=== PATIENT | male | born 1980 | race Caucasian/White ===

== ENCOUNTER 2019-02-13 02:50 | Inpatient (IN) | payer MEDICAID ==
[2019-02-13] VITALS (8 sets, daily range): BP systolic 89–99; BP diastolic 47–63; Ht 167.6 cm; Wt 59.9 kg
[~2019-02-13] VITALS: Ht 167.6 cm; Wt 59.9 kg
--- NOTE | 2019-02-13 03:09 | NUR ---
PT PRESENTS TO ER TODAY WITH C/O OF GENERALIZED WEAKNESS THAT STARTED APPROX 3 DAYS AGO. PER PT HE ALSO HAD LABS DRAWN ON 02/10 AND HE RECIEVED A CALL FROM HIS PCP STATING IS BLOOD COUNT WAS LOW AND HE NEEDED TO VISIT THE ER. PT ALSO REPORTING NAUSEA AND VOMITNG X3. PT DENIES ANY BLOOD IN HIS VOMIT OR STOOL. PT DENIES ANY PAIN AT THIS TIME. PT PLACED ON IT PROGRAMMER. PT IS A/O X4. RESP ARE EQUAL AND UNLABORED. NO ACUTE DISTRESS NOTED. FAMILY AT BEDSIDE.
[2019-02-13 03:31] LABS: PLATELET COUNT 291 x10^3mcL (130-400)
[2019-02-13 03:33] LABS: RED CELL DISTRIBUTION WIDTH 20.3 % (11.5-14.5)
[2019-02-13 03:53] LABS: CALCIUM 7.6 mg/dL (8.5-10.1); CARBON DIOXIDE 26.2 mmol/L (21-32); CHLORIDE SERUM 106 mmol/L (98-107); GFR1 > 60 mL/min; GLUCOSE SERUM 108 mg/dL (74-106); POTASSIUM SERUM 4.1 mmol/L (3.5-5.1); SODIUM SERUM 141 mmol/L (136-145)
[2019-02-13 03:58] LABS: ALBUMIN 2.6 g/dL (3.4-5.0); ALKALINE PHOSPHATASE 105 U/L (46-116); ALT/SGPT 20 U/L (16-63); AST/SGOT 34 U/L (15-37); BILIRUBIN TOTAL 0.43 mg/dL (0.20-1.00); TOTAL PROTEIN, SERUM 9.3 g/dL (6.4-8.2)
--- NOTE | 2019-02-13 04:57 | NUR ---
ACCORDING TO BLOOD BANK PT CAN NOT RECIEVE BLOOD DUE TO PT TESTING POSTIVE FOR ANTIBODIES IN HIS BLOOD. BLOOD BANK STATES THAT PTS BLOOD WILL BE SENT OUT FOR FURTHER TESTING.PER BLOOD BACK THIS TESTING WILL TAKE APPROX 1 DAY AND PT CANNOT RECIEVE BLOOD UNTIL THIS TEST IS COMPLETE. MD GRIGGS MADE AWARE.
[2019-02-13 05:03] LABS: BAND NEUTROPHIL 7 % (0-10); MONOCYTE 5 % (0-7); SEGMENTED NEUTROPHILS 68 % (37-75)
[2019-02-13 05:05] LABS: rbc morphology (normal/abnorm) ABNORMAL (NORMAL)
[2019-02-13 05:06] LABS: PLATELET MORPHOLOGY PLATELETS NORMAL
[2019-02-13 05:20] LABS: MAGNESIUM 2.2 mg/dL (1.8-2.4); PHOSPHOROUS 3.7 mg/dL (2.5-4.9)
[2019-02-13] MEDS ORDERED: BIKTARVY 50-201 EACH PO (05:22)
--- NOTE | 2019-02-13 07:16 | NUR ---
REPORT GIVEN TO MIGUEL DELGADO TO ASSUME CARE OF PT.
--- NOTE | 2019-02-13 07:59 | NUR ---
PATIENT ARRIVED FROM ED ACCOMPANIED BY MEAT CUTTING BLOCK REPAIRER. PATIENT AMBULATED TO BED WITHOUT ASSISTANCE AND TO THE RESTOOM WHERE HE VOIDED, PATIENT REPORTS NO DIZZINESS OR WEAKNESS WHEN AMBULATING. PATIENT IS A/0 X4, DENIES SHORTNESS OF BREATH ON ROOM AIR. PATIENT STATES HE HAD AN ABNORMAL LAB RESULT THE OTHER DAY AND WAS INSTRUCTED TO FOLLOW UP WITH HIS DR, BUT WOKE FROM SLEEP LAST NIGHT VOMITING AND CAME TO ED. PATIENT HGB/HCT IS 5.7/18. REPORT FROM ED NURSE GLEN STATED THAT BLOOD BANK REPORTED PATIENT HAS ANTIBODIES IN BLOOD AND BLOOD WILL NOT BE READY FOR A DAY. WILL VERIFY WITH BLOOD BANK AND INFORM PHYSICIAN. ORIENTED TO CALL LIGHT SYSTEM AND INSTRUCTED TO CALL WHEN ASSISTANCE IS NEEDED. WILL CONTINUE TO MONITOR
--- NOTE | 2019-02-13 08:54 | NUR ---
PATIENT WAS ADMITTED TO [facility], MONITOR 19 PLACED ON PATIENT READING NSR. ADMINISTERED NMEDICATION PER AUG. INFOMRED PATIENT WE ARE STILL WAITING TO HEAR BACK FROM BLOOD BANK ABOUT BLOOD AVAILABILITY. PER BLOOD BANK DUE TO ANTIBODIES IN PATIENT BLOOD, BLOOD MUST BE SENT OUT TO OUTSIDE FACILITY. WILL FOLLOW UP
--- NOTE | 2019-02-13 10:00 | NUR ---
PATIENT EDUCATED ABOUT OCCULT STOOL SAMPLE, HAT PROVIDED IN TOILET. PATIENT REQUESTING URINAL, STATING THAT RECENTLY HE HAS BEEN HAVING PROBLEMS HOLDING HIS URING WHEN HE FEELS THE URGE TO GO AND WHILE ABLE TO AMBULATE TOT RESTROOM WANTED A URINAL JUST IN CASE. PATIENT STATING DUE TO HIS SMOAKING HABITS OF 3-4 TIMES PER DAY HE WOULD LIKE A NICOTINE PATICH TO CURB CRAVINGS. WILL INFORM DRS AT ROUNDING INFORMED DR LUNA AUTOMOTIVE STARTER REPAIRER PHONE FOR DR ROSALES ABOUT DELAY IN BLOOD AVAILABILIITY FOR TRANSFUSION. DRS AWARE ALREADY. PATIENT DID NO RECEIVE MEDICATIONS FOR BLOOD TRANSUFSION DUE TO BLOOD NOT BEING AVAILABLE
--- NOTE | 2019-02-13 13:16 | NUR ---
CLARIFIED ORDER WITH DR ROSALES ABOUT BENADRYL AND PEPCID FOR HIVES, PATIENT STATING HE IS NOT ITCHING OR EXPERIENCING HIVES, PER DR STARK, PATIENT SHOWS SIGNS OF PREVIOUS ITCHING AND IS MEDICATING PROPHYLACTICALLY. CHANGED ORDER FOR NICOTINE PATCH FOR NOW SINCE PATIENT IS EXPERIENCING ANXIETY NEEDING TO SMOKE
--- NOTE | 2019-02-13 13:32 | NUR ---
ADMINISTERED MEDICATION PER AUG, NICOTINE PATCH PLACED TO LEFT UPPER ARM AND DATED. PATIENT HAD NO ADDITIONAL COMPLAINTS AT THIS TIME
--- NOTE | 2019-02-13 15:26 | NUR ---
BEGINING OF BLOOD TRANSFUSION. VITAL SIGNS STABLE, BLOOD VERIFIED BY SURU RN. PATIENT EDUCATED ABOUT ADERVE EFFECTS OF TRANSFUSION AND INSTRUCTED TO CALL IF NEEDING HELP. PATIENT MEDICATED WITH BENADRYL BEFORE BEGINING OF TRANSFUSION. RN WILL REMAIN IN ROOM WITH PATIENT FOR FIRST 15 MINUTES OF TRANSFUSION
--- NOTE | 2019-02-13 15:51 | NUR ---
AFTER 15 MINUTES OF PRBC TRANSFUSION PATIENT HAS NO COMPLAINTS AND SHOWS NO SIGNS OF TRANSFUSION REACTIONS. VITAL SIGNS STABLE. MOTHER IN ROOM WITH PATIENT. CALL LIGHT WITHIN REACH, WILL CONTINUE TO MONITOR
--- NOTE | 2019-02-13 18:11 | NUR ---
TRANSFUSION ENDED AT 1800, VITAL SIGNS STABLE, NO SIGNS OR SYMPTOMS OF ADVERSE REACTION. PATIENT HAS NO COMPLAINTS. LASIX ADMINSTERED PER ORDER. CALL LIGHT WIHTIN REACH, MOTHER AT BEDSIDE. WILL CONTINUE TO MONITOR
--- NOTE | 2019-02-13 19:18 | NUR ---
REPORT GIVEN TO HINA DELGADO, PATIENT RESTING COMFORTABLY AT THIS TIME, WITH NO COMPLAINTS. ENDROSED X2 BLOOD TRANSFUSIONS TO OUTREACH DIRECTOR.
--- NOTE | 2019-02-13 19:20 | NUR ---
RECIEVED PT IN NO ACUTE DISTRESS. AOX4. TELE #19, SR. BREATHING E/U. IV TO LAC, PATENT. DENIES PAIN. MOTHER AT BEDSIDE. BED IN LOWEST POSITION, 2 SIDE RAILS UP, CALL LIGHT IN REACH. INSTRUCTED TO CALL FOR ASSISTANCE.
--- NOTE | 2019-02-13 21:26 | NUR ---
PRBC UNIT 2 OF 3 STARTED AT 2050 AT 50 ML/HR. BLOOD PRODUCT WAS VERIFIED WITH ANJELICA DELGADO. PRE INFUSION VSS. 15 MIN VSS, RATE INCREASED TO 125 ML/HR AT THIS TIME. NO S/S OF ADVERSE REACTIONS.
[2019-02-14 00:05] VITALS: BP 92/57
[2019-02-14 00:50] VITALS: BP 90/55
--- NOTE | 2019-02-14 01:00 | NUR ---
PRBC UNIT 3 OF 3 STARTED AT 0030 AT 60 ML/HR. BLOOD PRODUCT WAS VERIFIED WITH ANJELICA DELGADO. PRE INFUSION VSS. 15 MIN VSS, RATE INCREASED TO 125 ML/HR AT THIS TIME. NO S/S OF ADVERSE REACTIONS.
[2019-02-14 03:20] VITALS: BP 95/64
--- NOTE | 2019-02-14 03:32 | NUR ---
PRBC UNIT 3 OF 3 COMPLETED AT 0320. VSS. PT EXPERIENCED NO ADVERSE REACTIONS. DR. NUNEZ AND DR. RAMOS NOTIFIED VIA [employer] FOR POSSIBLE POST TRANSFUSION H/H REDRAW.
[2019-02-14 04:25] LABS: microscopic required? YES; urine erythrocyte TRACE (NEGATIVE)
[2019-02-14 04:36] LABS: AMPHETAMINE QUAL UR NONE DETECTED (See below)
[2019-02-14 05:36] VITALS: BP 86/56
--- NOTE | 2019-02-14 06:39 | NUR ---
NO ACUTE CHANGES. NO ACUTE DISTRESS NOTED. WILL ENDORSE TO ONCOMING RN.
--- NOTE | 2019-02-14 07:11 | NUR ---
RECEIVED REPORT FROM HINA DELGADO. PATIENT RESTING COMFORTABLY IN BED. SALINE LOCK TO LAC IS PATENT AND INTACT. NO REDNESS OR PAIN. TELE # [address] PT ON ROOM AIR. NO C/O SOB AND NO DISTRESS NOTED. ALL QUESTIONS AND CONCERNS ADDRESSED.
[2019-02-14 08:34] LABS: CALCIUM 7.7 mg/dL (8.5-10.1); CARBON DIOXIDE 23.5 mmol/L (21-32); CHLORIDE SERUM 104 mmol/L (98-107); CREATININE SERUM 0.8 mg/dL (0.7-1.3); GFR1 > 60 mL/min; GLUCOSE SERUM 109 mg/dL (74-106); POTASSIUM SERUM 3.6 mmol/L (3.5-5.1); SODIUM SERUM 139 mmol/L (136-145)
[2019-02-14 08:38] LABS: BASOPHIL % 0.2 % (0-2)
[2019-02-14 08:44] LABS: PLATELET COUNT 450 x10^3mcL (130-400); RED CELL DISTRIBUTION WIDTH 17.5 % (11.5-14.5)
[2019-02-14 09:00] VITALS: BP 101/65
--- NOTE | 2019-02-14 09:29 | NUR ---
DR ELLIOTT PAGED TO SEE IF C.DIFF AND STOOL CULTURE ARE GOING TO BE ORDERED PER DR SEO SUGGESTION AND TO NOTIFY THAT PT HOME MED BIKTARVY CAN'T BE BROUGHT FROM HOME. AWAITING RESPONSE.
--- NOTE | 2019-02-14 09:45 | NUR ---
DR ELLIOTT CALLED BACK AND WILL ORDER C.DIFF AND CULTURE. PT POSSIBLY GOING HOME TODAY HOME MEDICATION NOT NEEDED.
[2019-02-14] MEDS ORDERED: FER300 PO (10:05)
[2019-02-14 12:03] VITALS: BP 101/65
--- NOTE | 2019-02-14 12:19 | NUR ---
PATIENT STABLE FOR DISCHARGE PER MD. DISCHARGE INSTRUCTIONS AND SUMMARY DISCUSSED WITH PATIENT. PT VERBALIZED UNDERSTANDING AND AGRESS TO FOLLOW UP APPOINTMENT WITH PCP. ID BANDS CUT. IV REMOVED AND IV POLE CLEARED. TELE MONITOR REMOVED AND MONITOR NOTIFIED. PATIENT ESCORTED TO LOBBY.
== END 2019-02-14 12:25 | disposition home or self-care (01) | DRG 663 ==
LOC: ED 02:50 → MU 04:53 → DU 04:53 → MU 07:33 → DU 08:47
PROVIDERS: Emergency Medicine; ADMIT General Practice
DX: D53.9 Nutritional anemia, unspecified (principal); E43 Unspecified severe protein-calorie malnutrition; I95.9 Hypotension, unspecified; E83.51 Hypocalcemia; Z68.21 Body mass index [BMI] 21.0-21.9, adult; Z87.891 Personal history of nicotine dependence
CPT/HCPCS: 87046; 87046-59; G0378; J2405; J7030; J7040; P9016; Q0163

== ENCOUNTER 2019-03-24 20:14 | Inpatient (IN) | payer MEDICAID ==
[~2019-03-24] VITALS: Ht 167.6 cm; Wt 51.0 kg
[~2019-03-24 20:14] MED LIST: BIKTARVY 50-201 EACH PO; FER300 PO
[2019-03-24 20:17] VITALS: Ht 167.6 cm; Wt 51.0 kg
--- NOTE | 2019-03-24 20:35 | NUR ---
PT PRESENTS TO THE ED WITH C/C OF ABNORMAL LAB RESULTS. REPORTS HE WAS FEELING "OUT OF ENERGY" AND HAPPENED TO HAVE A DR.'S APPT. PMD YG LABS AND TOLD THE PT HE HAD "LOW HEMOGLOBIN". PT STATES HE'S WEAK, FATIGUED, REPORTS HE WAS SEEN AT THE HOSPITAL FOR THE SAME THING THREE WEAKS AGO. PT APPEARS PALE AND WEAK. FULL ROM, AMBULATORY. PT IS AWAKE, AAOX4, RESP E/U, NAD NOTED. AWAITING MSE. MOTHER AT BEDSIDE.
--- NOTE | 2019-03-24 20:44 | NUR ---
PT AWARE OF NEED FOR URINE, LAB AT BEDSIDE.
--- NOTE | 2019-03-24 20:47 | NUR ---
PT AMBULATING WITH STEADY GAIT TO RESTROOM.
[2019-03-24 21:13] LABS: CALCIUM 7.9 mg/dL (8.5-10.1); CARBON DIOXIDE 23.4 mmol/L (21-32); CHLORIDE SERUM 101 mmol/L (98-107); CREATININE SERUM 1.2 mg/dL (0.7-1.3); GFR1 > 60 mL/min; GLUCOSE SERUM 112 mg/dL (74-106); POTASSIUM SERUM 3.9 mmol/L (3.5-5.1); SODIUM SERUM 132 mmol/L (136-145)
[2019-03-24 21:18] LABS: ALBUMIN 1.6 g/dL (3.4-5.0); ALKALINE PHOSPHATASE 921 U/L (46-116); ALT/SGPT 43 U/L (16-63); AST/SGOT 80 U/L (15-37); BILIRUBIN TOTAL 0.5 mg/dL (0.20-1.00); TOTAL PROTEIN, SERUM 7.4 g/dL (6.4-8.2)
[2019-03-24 21:25] LABS: PLATELET COUNT 109 x10^3mcL (130-400)
--- NOTE | 2019-03-24 21:42 | NUR ---
REMINDED PT OF NEED FOR URINE, PT STATED "I STILL CAN'T GO".
[2019-03-24 21:57] LABS: BAND NEUTROPHIL 0 % (0-10); SEGMENTED NEUTROPHILS 0 % (37-75)
[2019-03-24 21:58] LABS: rbc morphology (normal/abnorm) ABNORMAL (NORMAL)
--- NOTE | 2019-03-24 22:18 | NUR ---
DR AUSTIN AT BEDSIDE TO SPEAK WITH PT REGARDING PLAN OF CARE OF NEED FOR ADMISSION AND NEED FOR BLOOD TRANSFUSION. PT VERBALIZED UNDERSTANDING AND AGREED TO PLAN OF CARE. PT SIGNED CONSENT FOR BLOOD TRANSFUSION.
[2019-03-24] MEDS ORDERED: ZITHROMAX500 MG PO (22:23)
[2019-03-24] MEDS ORDERED: BACTRIM DS1 TAB PO (22:24)
--- NOTE | 2019-03-24 22:32 | NUR ---
IV BOLUS INITIATED PER ORDER, PT VERBALIZED UNDERSTANDING OF MEDICATION PRIOR TO ADMINISTRATION. PT IS AWAKE AND ALERT, RESP E/U, SPEAKING WITH RESIDENT MDS AT BEDSIDE.
--- NOTE | 2019-03-24 22:47 | NUR ---
MD MADE AWARE OF BP, 93/53, WANTS TO REASSESS POST BOLUS. PT IS AWAKE, ALERT, RESP E/U, SPEAKING IN FULL, CLEAR SENTENCES. NAD NOTED.
--- NOTE | 2019-03-24 23:04 | NUR ---
IV BOLUS COMPLETED, NEW BP 98/55, MAP (65). MD AWARE, NO FURTHER ORDERS ANTICIPATED AT THIS TIME.
--- NOTE | 2019-03-24 23:17 | NUR ---
REPORT CALLED TO SANDY FERRARO, REPORTS SHE WILL CALL BACK AFTER SHE VERIFIES WITH CHARGE.
--- NOTE | 2019-03-24 23:22 | NUR ---
REPORT CALLED TO LABORATORY MACHINIST SONIA TO ASSUME CARE FOR PT.
--- NOTE | 2019-03-24 23:29 | NUR ---
PT TRANSFERRED TO MED SURG FLOOR VIA WHEELCHAIR BY EMT NHAN. PT VERBALIZED UNDERSTANDING OF NEED TO CONTINUE CARE. PT IS AWAKE, ALERT, AAOX4, RESP E/U. PT'S MOTHER AT SIDE. NAD NOTED.
[2019-03-24 23:54] VITALS: BP 100/55
--- NOTE | 2019-03-25 00:09 | NUR ---
RECEIVED PT FROM ER, PT ADMIT FOR PANCYTOPENIA. PT IS A/O X4, VERBAL RESPONSIVE, LUNG SOUND CLEAR BILATERAL, NO COUGH, NO SOB, DENY ANY CHEST PAIN OR DISCOMFORT, BOWEL SOUND PRESENT ALL 4 QUADRANTS, NO DISTNETION, NO TNEDER. PEDAL PULSE PRESENT BOTH FEET, NO EDEMA, PT C/O GENERALIZED WEAKNESS, IV AT LEFT AC, AND RIGHT AC, THERE IS MULITPLE SMALL BLACK SPOTS AT SARIAH ARM AND FRONT BODY. ALL ADLS ASSIST, ALL NEED MET, CALL LIGHT IN REACH, WILL CONTINUE TO MONITOR.
[2019-03-25 00:56] LABS: microscopic required? NO
[2019-03-25 01:02] LABS: UA SPECIFIC GRAVITY <=1.005 (1.005-1.035); urine erythrocyte NEGATIVE (NEGATIVE)
[2019-03-25 01:13] LABS: AMPHETAMINE QUAL UR NONE DETECTED (See below)
--- NOTE | 2019-03-25 01:41 | NUR ---
ONE UNIT OF PRBC ORDERED FOR PT FROM ER. UNIT OF PRBC OBTAINED AND STARTED. PT. TOLERATING WELL THUS FAR. NO ADVERSE REACTIONS NOTED THUS FAR. V.S. PRE TRANSFUSIION, BP 103/55, HR89, RESP. 16, O2 SAT. 995, 97.9 TEMPT. 15 MINUTES AFTER TRANSFUSION, 97.6, HR84,RESP. 16, 99%, RESP. 16. PT.'S MOTHER REMAINS AT BEDSIDE. CALL LIGHT WITHIN REACH. WILL CONTINUE TO MONITOR.
[2019-03-25 05:50] VITALS: BP 97/63
[2019-03-25 07:14] LABS: CALCIUM 7.3 mg/dL (8.5-10.1); CARBON DIOXIDE 23.8 mmol/L (21-32); CHLORIDE SERUM 108 mmol/L (98-107); CREATININE SERUM 0.9 mg/dL (0.7-1.3); GFR1 > 60 mL/min; GLUCOSE SERUM 85 mg/dL (74-106); MAGNESIUM 1.7 mg/dL (1.8-2.4); PHOSPHOROUS 4.2 mg/dL (2.5-4.9); POTASSIUM SERUM 3.8 mmol/L (3.5-5.1); SODIUM SERUM 139 mmol/L (136-145)
[2019-03-25 07:28] VITALS: BP 98/66
--- NOTE | 2019-03-25 07:36 | NUR ---
RECEIVED IN NO RESP. DISTRESS. AWAKE, ALERT AND ORENTED. VS WNL. IVF INFUSING WELL AND SITE CLEAR. NO C/O PAIN OR DISCOMFORT AT THIS TIME. CALL LIGHT WITHIN REACH. WILL CONTINUE WITH PLAN OF CARE.
[2019-03-25 07:41] LABS: PLATELET COUNT 83 x10^3mcL (130-400); RED CELL DISTRIBUTION WIDTH 18.6 % (11.5-14.5)
[2019-03-25 10:08] LABS: IRON 19 ug/dL (65-170); TOTAL IRON BINDING CAPACITY 154 ug/dL (250-450)
--- NOTE | 2019-03-25 12:38 | NUR ---
RESTING IN BED. NO DISTRESS NOTED. NO C/O PAIN.
[2019-03-25 12:57] LABS: ATYPICAL LYMPH 0 %; BAND NEUTROPHIL 0 % (0-10); BASOPHIL 4 % (0-2); MONOCYTE 30 % (0-7); SEGMENTED NEUTROPHILS 14 % (37-75)
[2019-03-25 12:59] LABS: PLATELET MORPHOLOGY PLATELETS DECREASED
[2019-03-25 13:01] LABS: rbc morphology (normal/abnorm) ABNORMAL (NORMAL)
--- NOTE | 2019-03-25 14:50 | NUR ---
Nutrition education: Patient was provided with [facility] handout on 'HIV/AIDS Nutrition Therapy'. Concepts like small frequent meals and nutrient dense foods were discussed. Patient verbalized understanding and did not have any questions at this time.
[2019-03-25 16:42] VITALS: BP 123/79
--- NOTE | 2019-03-25 16:50 | NUR ---
UNABLE TO START BLOOD TRANSFUSION, PT HAS TEMP. 102.0. COOLING MEASURES INITIATED, TYLENOL GIVEN. WILL RECHECK TEMP LATER.
--- NOTE | 2019-03-25 17:21 | NUR ---
TEMP STILL 101.3, COOLING MEASURES MAINTAINED. STILL UNABLE TO START TRANSFUSION.
--- NOTE | 2019-03-25 17:24 | NUR ---
DR. JEAN AWARE OF ELEVETED TEMP.
--- NOTE | 2019-03-25 18:41 | NUR ---
TEMP NOW 101.8, COOLING MEASURES IN PLACE. DR. JEAN PAGED. PT IN NO DISTRESS, DENIES ANY DISCOMFORT. FAMILY AT BEDSIDE. WILL BE ENDORSED TO INCOMING SHIFT.
[2019-03-25 19:40] VITALS: BP 103/56
--- NOTE | 2019-03-25 20:14 | NUR ---
PATIENT RECEIVED AWAKE, ALERT, ORIENTED X4 IN BED. RESPIRATION EVEN AND UNLABORED, ON ROOM AIR. ONGOING 0.9% NS AT 120 CC/HR INFUSING WELL AT THE LT ANTECUBITAL AREA. POOR APPETITE. LBM 03/25/19. VOIDING FREELY, INCONTINENT AT TIMES. GENERALIZED WEAKNESS TO EXTREMITIES. SCATTERED DISCOLORED SPOTS ALL OVER THE BODY. DENIES PAIN AT THIS TIME. WILL CONITNUE TO MONITOR.
--- NOTE | 2019-03-25 22:43 | NUR ---
STARTED 1 UNIT OF PRBC ORDERED. PRE MEDICATED WITH TYLENOL 650 MG PO AND BENADRYL 25 MG PO ORDERED. PRE TRANSFUSION VITAL SIGNS FOLLOWS TEMP 97.3, BP 94/53, HR 98, RR 20, O2 SAT 99%. WILL CONTINUE TO MONITOR.
--- NOTE | 2019-03-26 02:35 | NUR ---
PATIENT COMPLETED 1 UNIT OF PRBC. POST TRANSFUSION VITAL SIGNS FOLLOWS TEMP 97.3, HR 86, BP 94/52, RR 20, O2 SAT 99%. NO TRANSFUSION REACTION NOTED. WILL CONTINUE TO MONITOR.
[2019-03-26 04:51] VITALS: BP 97/63
--- NOTE | 2019-03-26 06:02 | NUR ---
PATIENT RESTING IN BED. RESPIRATION EVEN AND UNLABORED, ON ROOM AIR. DENIES DISCOMFORT/PAIN. SALINE LOCK TO RT ANTECUBITAL AND LT ANTECUBITAL AREA PATENT AND INTACT. ON NEUTROPENIC PRECAUTION. ASSISTED WITH NEEDS. SAFETY OBSERVED. PLACED BED IN THE LOWEST POSITION. PLACED CALL LIGHT WITHIN REACH AT ALL TIMES.
--- NOTE | 2019-03-26 06:48 | NUR ---
LAB [facility] CALLED, GAVE RESULT OF ANC 0.[address] A[address] SAMANIEGO.
--- NOTE | 2019-03-26 07:30 | NUR ---
PT ENDORSE TO ME THIS MORNING, LAYING IN BED RESTING, AA/O X4, BREATHING EVEN AND UNLABORED ON RA, NO ACUTE RESP DISTRESS OR SOB NOTED. MEDSURG DENIES ANY CP OR PRESSURE. REMAINS ON ISOLATION, NEUTROPENIC. BOWEL SOUNDS ACTIVE IN ALL FOUR QUADS. LAST BM 03/25/ POOR APPETITE NOTED PER PT. GEN WEAKNESS/AMB / KNOWS TO CALL FOR ASSIST. IV TO THE THE LAC INTACT AND PATENT. CALL LIGHT IN REACH. BED IN LOW POSITION, WILL CONTINUE TO MONITOR.
[2019-03-26 09:01] LABS: PLATELET COUNT 82 x10^3mcL (130-400); RED CELL DISTRIBUTION WIDTH 18.9 % (11.5-14.5)
[2019-03-26 09:08] VITALS: BP 112/70
--- NOTE | 2019-03-26 09:18 | NUR ---
LAB CALLED WBC 1.0 DR MADE AWARE. WILL CONTINUE TO MONITOR.
[2019-03-26 09:25] LABS: CALCIUM 7.6 mg/dL (8.5-10.1); CARBON DIOXIDE 23.6 mmol/L (21-32); CHLORIDE SERUM 105 mmol/L (98-107); CREATININE SERUM 0.8 mg/dL (0.7-1.3); GFR1 > 60 mL/min; GLUCOSE SERUM 82 mg/dL (74-106); POTASSIUM SERUM 4.7 mmol/L (3.5-5.1); SODIUM SERUM 136 mmol/L (136-145)
[2019-03-26 12:34] LABS: SEGMENTED NEUTROPHILS 9 % (37-75)
[2019-03-26 12:35] LABS: ATYPICAL LYMPH 3 %; BAND NEUTROPHIL 1 % (0-10); MONOCYTE 30 % (0-7); rbc morphology (normal/abnorm) ABNORMAL (NORMAL)
[2019-03-26 12:36] LABS: PLATELET MORPHOLOGY LARGE PLATELET SEEN
--- NOTE | 2019-03-26 14:09 | NUR ---
MADELEINE PALOMINO WALKED PT DOWN TO FRONT OF HOSPITAL. PT BREATHING EVEN AND UNLABORED ON RA, NO ACUTE RESP DISTRESS OR SOB NOTED/ DENIES ANY ABD PAIN OR DISCOMFORT. PHONE NUMBERS/ AND ADDRESSES GIVEN FOR DR. DINH AND PHYLLIS. PT IS CLEAR ON ALL D/C INSTRUCTIONS. DISCHARED.
--- NOTE | 2019-03-26 15:30 | NUR ---
PT LAYING IN BED RESTING WITH EYES CLOSE, EASILY AROUSABLE. PE PT TOLERATED 30 % OF LUNCH DENIES ANY PAIN OR DISCOMFORT. WILL CONTINUE TO MONITOR.
[2019-03-26 15:50] VITALS: BP 111/71
--- NOTE | 2019-03-26 16:21 | NUR ---
TEMP 101, MEDICATED PER EMAR WITH TYLENOL 650 MG, COOLING MEASURES APPLIED. WILL RETAKE IN ONE HR. PT DENIES ANY DISCOMFORT.
--- NOTE | 2019-03-26 17:22 | NUR ---
RECHECK PT TEMP IS NOW 99.1 COOLING MEASURES STILL APPLIED (AIR AND ICE PACKS APPLIED). WILL CONTINUE TO MONITOR.
--- NOTE | 2019-03-26 18:55 | NUR ---
NO ACUTE CHANGES AT THIS TIME, NO ACUTE RESP DISTRESS OR SOB NOTED. DENIES ANY CP OR PRESSURE OR DISCOMFORT. LAST TEMP WAS 99.1/COOLING MEASURES STILL APPLIED/ MOTHER AT BEDSIDE. IV TO THE LAC INTACT AND PATENT/ INFUSING AT 120ML/HR, NO REDNESS OR SWELLING NOTED. WILL ENDORSE TO INCOMING RN.
--- NOTE | 2019-03-26 19:10 | NUR ---
CARE ASSUMED FROM OUTGOING RN. PT RESTING COMFORTABLY IN BED. FAMILY AT BEDSIDE. NO ACUTE DISTRESS NOTED. EVEN AND UNLABORED RESPIRATIONS ON RA. MEDSURG PT. NEUTROPENIC PRECAUTION IN PLACE. IV PATENT AND INTACT RUNNING FLUIDS PER EMAR. NO C/O OF PAIN AT THIS TIME. BED IN LOWEST POSITION. SIDE RAILS UPX2. CALL LIGHT WITHIN REACH. WILL CONTINUE TO MONITOR.
[2019-03-26 19:15] VITALS: BP 100/61
--- NOTE | 2019-03-27 00:39 | NUR ---
PT ASLEEP COMFORTABLY IN BED. FAMILY AT BEDSIDE. NO ACUTE DISTRESS NOTED. EVEN AND UNLABORED RESPIRATION ON RA. IV PATENT AND INTACT RUNNING FLUIDS PER EMAR. NEUTROPENIC PRECAUTION IN PLACE. BED IN LOWEST POSITION. SIDE RAILS UPX2. CALL LIGHT WITHIN REACH. WILL CONTINUE TO MONITOR.
[2019-03-27 04:21] VITALS: BP 108/56
--- NOTE | 2019-03-27 06:24 | NUR ---
PT SLEPT COMFORTABLY IN INTERVALS THROUGHOUT THE SHIFT. ALL NEEDS TENDED TO AND MET. ALL SCHEDULED MEDICATIONS GIVEN, PO ANTIBIOTICS DC'ED PER DR. SEO, STARTED ON IV MERREM Q8HRS. IV PATENT AND INTACT RUNNING FLUIDS PER EMAR. NO C/O OF PAIN THROUGHOUT THE SHIFT. AFEBRILE THROUGHOUT THE SHIFT. NEUTROPENIC PRECAUTION IN PLACE. BED IN LOWEST POSITION. SIDE RAILS UPX2. CALL LIGHT WITHIN REACH. WILL ENDORSE TO ONCOMING SHIFT.
[2019-03-27 06:52] LABS: PLATELET COUNT 75 x10^3mcL (130-400); RED CELL DISTRIBUTION WIDTH 18.9 % (11.5-14.5)
[2019-03-27 06:53] LABS: CALCIUM 7.3 mg/dL (8.5-10.1); CARBON DIOXIDE 23.3 mmol/L (21-32); CHLORIDE SERUM 102 mmol/L (98-107); CREATININE SERUM 1.1 mg/dL (0.7-1.3); GFR1 > 60 mL/min; GLUCOSE SERUM 95 mg/dL (74-106); POTASSIUM SERUM 4.3 mmol/L (3.5-5.1); SODIUM SERUM 132 mmol/L (136-145)
--- NOTE | 2019-03-27 06:58 | NUR ---
LAB CALLED WITH CRITICAL RESULTS: WBC 1.6, H/H 7.7/. RESULTS PAGED TO . WILL ENDORSE TO ONCOMING SHIFT.
--- NOTE | 2019-03-27 07:30 | NUR ---
PT ENDORSE TO ME THIS MORNING, LAYING IN BED RESTING, AA/O X4, BREATHING EVEN AND UNLABORED ON RA, NO ACUTE RESP DISTRESS OR SOB NOTED. MEDSURG, DENIES ANY CP OR PRESSURE AT THIS TIME. REMAINS ON NENTROPETIC ISOLATION. BOWEL SOUNDS ACTIVE IN ALL FOUR QUADS, LAST BM 03/26. AMB / VOIDS FREELY/ URINAL AT BEDSIDE. IV TO THE LAC INTACT AND PATENT. CALL LIGHT IN REACH. WILL CONTINUE TO MONITOR.
[2019-03-27 08:00] VITALS: BP 108/62; BP 110/60
[2019-03-27 11:44] VITALS: BP 101/64
[2019-03-27 12:46] LABS: ATYPICAL LYMPH 3 %; BAND NEUTROPHIL 1 % (0-10); BASOPHIL 1 % (0-2); MONOCYTE 20 % (0-7); SEGMENTED NEUTROPHILS 3 % (37-75)
[2019-03-27 12:47] LABS: rbc morphology (normal/abnorm) ABNORMAL (NORMAL)
[2019-03-27 12:48] LABS: PLATELET MORPHOLOGY LARGE PLATELET SEEN
--- NOTE | 2019-03-27 15:06 | NUR ---
Initial Nutrition Assessment Dx: Pancytopenia PMHx: HIV PSHx: None Labs: (03/27) Na 132L, AST 80H, WBC 1.6L, H/H 7.7L/23L Meds: Colace, Ferrous sulfate, Merrem, Retro-Viral med (home medication Biktarvy tab), NSIV Diet: Regular PO intake since admission: Highly variable, 20-100% x 3 days Ht: 66" Wt: 112# (50.8 kg) BMI:18.1 (Underweight) Bed scale: 110# today during visit IBW: 142# % IBW: 79% UBW: 120-130# Age: 38 y/o male Food Allergies: NKFA Skin: Scattered blackened spots throughout body, Gallito: 21 Edema: None GI: Last BM: x 1 today per pt; hard stools NFPE: Malnutrition parameters-Pt. noted with mild indentation of the B/L temporal region and loss of subcutaneous fat/muscle in the B/L brachial regions. Pt. admitted with generalized weakness associated with severe anemia, mild fever, and chills per H and P documentations. RD Note: Consult received for HIV pt. with malnourishment. Pt. endorses poor to fair appetite and fair tolerance to diet order. C/o constipation today r/t iron pills. Encouraged pt. to have adequate fluid and fiber intake for BM management. Discussed ONS pt takes at home (Ensure), and requesting for one with more kcal and protein. Willing to try Vanilla or [place] Ensure Enlive for increased nutrient needs. Endorses significant weight loss in the past 4 weeks; pt. states "I was eating a lot at home, but I keep losing weight without trying. I think I lost about -9 lbs." States he has been gradually losing weight x 1 year, but unable to specify how much during this time period. Problem with: N/V/D/C: +constipation Problems with: Chewing: N Swallowing: N Current appetite: Poor to fair today Recent wt change: -9# x 4 weeks %wt change: 7.5% 1 month; significant Vitamin/Supplement use: None Special diet at home: Regular Physical activity: Some walking 3-4 times weekly Nutrition education given (specify specific nutrition education and handout given): Emphasized the importance of small frequent meals high in kcal and protein to prevent further weight loss. Advised pt. to take MVI at home as well. Encouraged pt. to ask questions regarding diet and provide food preferences; FNS will provide as able. No NCM handouts provided during this visit. Estimated Nutritional Needs Based on current body weight (50.8 kg) Energy: 8188-4726 kcal/day (35-40 kcal/kg for increased factors for HIV) Protein: 76-102 g/day (1.5-2.0 g/kg for preservation of LBM) Fluid: 6231-5587 mL/day (1 mL/kcal) Nutrition Diagnosis: 1. Underweight r/t acute medical condition AEB pt. noted with extensive history of weight loss x 1 year, significant 7.5% loss x 1 month, measured BMI 18.1 kg/m2. 2. Inadequate PO intake r/t poor appetite 2/2 acute medical condition AEB PO intake meeting <75% estimated kcal and protein needs. 3. Increased nutrient needs r/t acute and chronic medical condition, increased metabolic demands AEB pt. with history HIV and noted w/mild indentation of the B/L temporal region and loss of subcutaneous fat/muscle in the B/L brachial regions. Intervention 1. Continue regular diet as ordered and as tolerated 2. Add Ensure Enlive TID w/meals for increased nutrient needs to add 1080 kcal and 60 g protein. Monitor/Evaluate Goal: PO intake at least 75% of estimated needs Monitor: PO intake, Labs, GI function, skin F/U in 3-5 days as moderate risk (03/30-04/01)
--- NOTE | 2019-03-27 15:16 | NUR ---
Intervention 1. Continue regular diet as ordered and as tolerated 2. Add Ensure Enlive TID w/meals for increased nutrient needs to add 1080 kcal and 60 g protein. 3. Consider adding MVI QD for supplementation/increased nutrient needs
[2019-03-27 15:53] VITALS: BP 99/60
--- NOTE | 2019-03-27 18:38 | NUR ---
NO ACUTE CHANGES AT THIS TIME. NO ACUTE RESP DISTRESS OR SOB NOTED. PER DR. LUNA NS AT 120 D/C/ ORDERS FOLLOWED THROUGH. IV TO THE LAC INTACT AND PATENT/ HEPLOCKED. MOTHER AT BEDSIDE. WILL ENDORSE TO INCOMING RN.
[2019-03-27 18:57] VITALS: BP 99/56
[2019-03-27 19:17] VITALS: BP 102/60
--- NOTE | 2019-03-27 19:20 | NUR ---
CARE ASSUMED FROM OUTGOING RN. PT RESTING COMFORTABLY IN BED. FAMILY AT BEDSIDE. NO ACUTE DISTRESS NOTED. EVEN AND UNLABORED RESPIRATIONS ON RA. MEDSURG PT. IVL INTACT. NO C/O PAIN AT THIS TIME. NEUTROPENIC PRECAUTION IN PLACE. BED IN LOWEST POSITION. SIDE RAILS UPX2. CALL LIGHT WITHIN REACH. WILL CONTINUE TO MONITOR.
--- NOTE | 2019-03-27 23:59 | NUR ---
PT ASLEEP COMFORTABLY IN BED. FAMILY AT BEDSIDE. NO ACUTE DISTRESS NOTED. EVEN AND UNLABORED RESPIRATIONS ON RA. NEUTROPENIC PRECAUTION IN PLACE. BED IN LOWEST POSITION. SIDE RAILS UPX2. CALL LIGHT WITHIN REACH. WILL CONTINUE TO MONITOR.
[2019-03-28 04:58] VITALS: BP 108/63
--- NOTE | 2019-03-28 06:36 | NUR ---
PT SLEPT COMFORTABLY IN INTERVALS THROUGHOUT THE SHIFT. ALL NEEDS TENDED TO AND MET. ALL SCHEDULED MEDICATIONS GIVEN. NEUTROPENIC PRECAUTION IN PLACE. BED IN LOWEST POSITION. SIDE RAILS UPX2. CALL LIGHT WITHIN REACH. WILL ENDORSE TO ONCOMING SHIFT.
[2019-03-28 07:39] LABS: CALCIUM 7.2 mg/dL (8.5-10.1); CHLORIDE SERUM 103 mmol/L (98-107); CREATININE SERUM 0.7 mg/dL (0.7-1.3); GFR1 > 60 mL/min; GLUCOSE SERUM 98 mg/dL (74-106); MAGNESIUM 1.8 mg/dL (1.8-2.4); PHOSPHOROUS 2.5 mg/dL (2.5-4.9); POTASSIUM SERUM 3.8 mmol/L (3.5-5.1); SODIUM SERUM 133 mmol/L (136-145)
[2019-03-28 07:46] LABS: PLATELET COUNT 69 x10^3mcL (130-400); RED CELL DISTRIBUTION WIDTH 19.6 % (11.5-14.5)
--- NOTE | 2019-03-28 08:19 | NUR ---
AAO TIMES 4. ISOLATION FOR NEUTROPENIC PRECAUTIONS. LUNGS CTA. NO SOB. O2 SAT ON RA 97%. BS'S ACTIVE TIMES 4. REYES WITH SLIGHT GENERALIZED WEAKNESS. IV TO LAC PATENT, CDI. RAC IV SITE, THE ANGIO WAS HALF PULLED OUT AND BENT, I REMOVED THIS SALINE LOCK ANGIO INTACT. PERIPHERAL PULSES PALPABLE. NO EDEMA. BLACK COLORED SMALL SPOTS, METAL PLATER, NO DRAINAGE, SKIN INTACT. COOPERATIVE.
[2019-03-28 08:40] VITALS: BP 91/59
--- NOTE | 2019-03-28 11:09 | NUR ---
DR HILLIARD VERBALLY TOLD DURING PATIENT ROUNDS OF PATIENT'S WBC OF 1.2, H&H OF 7.4/22, AND PLATELETS OF 69.
[2019-03-28 11:58] LABS: ATYPICAL LYMPH 2 %; BAND NEUTROPHIL 2 % (0-10); BASOPHIL 0 % (0-2)
[2019-03-28 11:59] LABS: MONOCYTE 31 % (0-7)
[2019-03-28 12:00] LABS: SEGMENTED NEUTROPHILS 6 % (37-75)
[2019-03-28 12:01] LABS: rbc morphology (normal/abnorm) ABNORMAL (NORMAL)
[2019-03-28 16:34] VITALS: BP 134/71
--- NOTE | 2019-03-28 17:00 | NUR ---
Yari Cintron for 03/25/19 at [facility]17 [facility] and list to [facility] given to patient by Wing Stoll.
--- NOTE | 2019-03-28 17:35 | NUR ---
AAO TIMES 4. NO C/O PAIN. NO SOB. REVERSE ISOLATION. NO SOB. COOPERATIVE AND PLEASANT. IV PATENT, SITE CDI.
--- NOTE | 2019-03-28 20:00 | NUR ---
RECEIVED PT IN BED AWAKE, ALERT, ORIENTED X4. SPEECH CLEAR. MOTHER AT BEDSIDE. DESTIN GSOUNDS CLEAR, BREATHING EASILY ON ROOM AIR. NO TELE MONITOR NOTED, MEDSURG PT. BS ACTIVE IN ALL FOUR QUADS. NO ABD PAIN NOTED. URINAL AT BEDSIDE. GENERALIZED WEAKNESS NOTED. SCATTERED BLACK SPOTS THROUGH OUT BODY. NS AT 70ML/HR TO LAC. SHIFT ASSESSMENT COMPLETED. CALL LIGHT WITHIN REACH. BED IS IN LOWEST POSITION. WILL CONTINUE TO MONITOR CLOSELY.
[2019-03-28 20:55] VITALS: BP 106/61
--- NOTE | 2019-03-28 22:00 | NUR ---
ANGELIA HUNG AT THIS TIME. PT SLEEPING BUT EASILY AROUSABLE. MOTHER AT BEDSIDE. CALL LIGHT WITHIN REACH. BED IS IN LOWEST POSITION. WILL CONTINUE TO MONITOR CLOSELY.
--- NOTE | 2019-03-28 23:05 | NUR ---
TEMP 101.0, TYLENOL GIVEN AT THIS TIME. PT STATES HE FEELS NORMAL, NO CHILLS NOTED. COOLING MEASURES ENFORCED.
--- NOTE | 2019-03-29 02:54 | NUR ---
PT APPEARS TO BE SLEEPING IN NO DISTRESS. IVF ONGOING. CALL LIGHT WITHIN REACH. WILL CONTINUE TO MONITOR CLOSELY.
[2019-03-29 05:24] VITALS: BP 97/54
--- NOTE | 2019-03-29 06:25 | NUR ---
PT SLEPT ON AND OFF THROUGH OUT THE NIGHT. NO DISTRESS NOTED. DENIES PAIN OR DISCOMFORT. IVF ONGOING. MERREM INFUSING WELL AT THIS TIME. NEUTROPENIC PRECAUTIONS ENFORCED THROUGH OUT SHIFT. CALL LIGHT WITHIN REACH. MOTHER REMAINS AT BEDSIDE. ALL NEEDS TENDED TO. WILL ENDORSE TO INCOMING SHIFT.
[2019-03-29 07:31] LABS: CALCIUM 7.4 mg/dL (8.5-10.1); CARBON DIOXIDE 24.8 mmol/L (21-32); CHLORIDE SERUM 108 mmol/L (98-107); CREATININE SERUM 0.8 mg/dL (0.7-1.3); GFR1 > 60 mL/min; GLUCOSE SERUM 94 mg/dL (74-106); PHOSPHOROUS 3.4 mg/dL (2.5-4.9); POTASSIUM SERUM 3.8 mmol/L (3.5-5.1); SODIUM SERUM 139 mmol/L (136-145)
[2019-03-29 07:47] LABS: PLATELET COUNT 50 x10^3mcL (130-400); RED CELL DISTRIBUTION WIDTH 19.3 % (11.5-14.5)
[2019-03-29 08:25] VITALS: BP 102/73
--- NOTE | 2019-03-29 09:02 | NUR ---
AAO TIMES 4. NO TELE. LUNGS CTA. NO SOB. O2 SAT ON RA 95%. BS'S ACTIVE TIMES 4. REYES WITH SLIGHT GENERALIZED WEAKNESS. IV SITE LAC PATENT, CDI. COOPERATIVE AND PLEASANT. DENIES DISCOMFORT. MOTHER AT BEDSIDE, SUPPORTIVE AND CARING. REVERSE ISOLATION PRECAUTIONS. WBC 1.3.
[2019-03-29 09:29] LABS: ATYPICAL LYMPH 6 %; BAND NEUTROPHIL 2 % (0-10); SEGMENTED NEUTROPHILS 8 % (37-75)
[2019-03-29 09:30] LABS: BASOPHIL 0 % (0-2); MONOCYTE 28 % (0-7); rbc morphology (normal/abnorm) ABNORMAL (NORMAL)
[2019-03-29 16:58] VITALS: BP 113/72
--- NOTE | 2019-03-29 17:50 | NUR ---
NEUTROPENIC PRECAUTIONS. MED SURG. COOPERATIVE AND PLEASANT. IV SITE LAC PATENT, CDI. NO C/O PAIN. HE IS WATCHING TV ON HIS PHONE. NO SOB.
--- NOTE | 2019-03-29 19:22 | NUR ---
SHIFT REASSESSMENT DONE.PATIENT ALERT AND ORIENTED.EATING DINNER WITH .IN GOOD SPIRIT.REVERSE ISOLATION.GEN WEAKNESS BUT AMBULATORY.NS AT 70 CC/ HOUR.IV SITE GOOD.MEDSURG PATIENT.SCATTERED SPOTS TROUGHOUT BODY.NO SKIN BREAKDOWN.VOIDING/URINAL.CALL LIGHT IN REACH.
[2019-03-29 20:36] VITALS: BP 102/59
--- NOTE | 2019-03-29 22:30 | NUR ---
ALL PM MEDS GIVEN,ATB.NO INCIDENT.CALL LIGHT IN REACH,REVERSE ISOLATION.PRECAUTION MAINTAINED.
--- NOTE | 2019-03-30 01:14 | NUR ---
CORRECTION:FAMILY STAYING WITH HIM IS HIS MOM.PATIET VERY PLEASNT.MOM VERY SUPPORTIVE OF CARE.CALL LIGHT IN REACH.
[2019-03-30 05:10] VITALS: BP 97/61
[2019-03-30 06:31] LABS: CALCIUM 7.5 mg/dL (8.5-10.1); CARBON DIOXIDE 27.5 mmol/L (21-32); CHLORIDE SERUM 107 mmol/L (98-107); CREATININE SERUM 0.6 mg/dL (0.7-1.3); GFR1 > 60 mL/min; GLUCOSE SERUM 90 mg/dL (74-106); PHOSPHOROUS 3.2 mg/dL (2.5-4.9); POTASSIUM SERUM 3.9 mmol/L (3.5-5.1); SODIUM SERUM 139 mmol/L (136-145)
--- NOTE | 2019-03-30 07:10 | NUR ---
SEEN RESTING WITH EYES CLOSED ON RIGHT SIDE. BREATHING E/U ON ROOM AIR. MOTHER AT BEDSIDE. IVF NS TO LAC INFUSING AT 70ML/HR. ON VANCOMYCIN AND MERREM IV. SIDERAILS UP X2. CALL LIGHT PLACED WITHIN EASY REACH. ON NEUTROPENIC PRECAUTION ISOLATION.
[2019-03-30 07:47] LABS: PLATELET COUNT 62 x10^3mcL (130-400); RED CELL DISTRIBUTION WIDTH 19.7 % (11.5-14.5)
--- NOTE | 2019-03-30 07:50 | NUR ---
WBC= 1.4 NEUTROPENIC ISOLATION CONTINUED.
[2019-03-30 08:05] VITALS: BP 96/64
[2019-03-30 09:23] LABS: BAND NEUTROPHIL 0 % (0-10); BASOPHIL 0 % (0-2); MONOCYTE 12 % (0-7); SEGMENTED NEUTROPHILS 16 % (37-75)
[2019-03-30 09:24] LABS: PLATELET MORPHOLOGY PLATELETS DECREASED; rbc morphology (normal/abnorm) ABNORMAL (NORMAL)
[2019-03-30 17:03] VITALS: BP 100/60
--- NOTE | 2019-03-30 17:38 | NUR ---
NO ANY DISTRESS THROUGHOUT SHIFT. CEPACOL GIVEN FOR SORE THROAT PER DOCTOR'S ORDER. BRP. ALL DUE MEDS GIVEN. IVF NS TO LAC INFUSING WELL.
[2019-03-30 19:26] VITALS: BP 96/57
--- NOTE | 2019-03-30 19:30 | NUR ---
PT RECIEVED FROM DAY NURSE, PT RESTING IN BED AT THIS TIME. FAMILY AT BEDSIDE. A/O X4, CALM AND COOPERATIVE AT THIS TIME. DENIES PAIN OR DISCOMFORT. PT M/S DENIES CP, NV, DIZZINESS, OR PALPATATIONS. PALPABLE PULSES, NO EDEMA NOTED. BREATHING E/U ON RA. DENIES SOB. ABD SOFT AND ROUND, DENIES PAIN TO PALPATATION. GENERALIZED WEAKNESS, AMBULATORY AT BASELINE. SCATTERED BLACK SPOTS NOTED ON BODY. LAC IV, INTACT AND INFUSING. BED AT LOWEST POSITION. CALL LIGHT WITHIN REACH. WILL CONTINUE TO MONITOR.
--- NOTE | 2019-03-30 21:00 | NUR ---
PT COMPLAINING OF INSOMNIA. MEDICATED WITH PRN AMBIEN. WILL CONTINUE TO MONITOR.
--- NOTE | 2019-03-31 | NUR ---
PT RESTING IN BED AT THIS TIME. NO S/S OF PAIN OR DISCOMFORT. BREATHING E/U ON RA. NO SIGNS OF ACUTE DISTRESS NOTED AT THSI TIME. WILL CONTINUE TO MONITOR.
[2019-03-31 04:01] VITALS: BP 129/65
--- NOTE | 2019-03-31 05:22 | NUR ---
PT TEMP 101.1, MEDICATED WTIH PRN TYLENOL. WILL CONTINUE TO MONITOR.
--- NOTE | 2019-03-31 06:07 | NUR ---
PT RESTING IN BED AT THIS TIME. NO S/S OF PAIN OR DISCOMFORT AT THIS TIME. BREATHING E/U ON RA. NO SIGNS OF ACUTE DISTRESS NOTED AT THIS TIME. ALL NEEDS AND CONCERNS ADDRESSED THIS SHIFT. WILL ENDORSE TO DAY NURSE.
--- NOTE | 2019-03-31 06:20 | NUR ---
PT TEMP NOW 98.9. DENIES PAIN OR DISCOMFORT.
--- NOTE | 2019-03-31 07:10 | NUR ---
SEEN RESTING WITH EYES CLOSED, LAYING IN BED ON HIS RIGHT SIDE. BREATHING E/U ON ROOM AIR. IVF NS TO LAC INFUSING WELL. PATIENT'S MOTHER AT BEDSIDE. CALL LIGHT PLACED WITHIN EASY REACH. SIDERAILS UP X2. ON NEUTROPENIC ISOLATION.
[2019-03-31 07:13] LABS: CARBON DIOXIDE 23.2 mmol/L (21-32); CHLORIDE SERUM 104 mmol/L (98-107); CREATININE SERUM 0.7 mg/dL (0.7-1.3); GFR1 > 60 mL/min; GLUCOSE SERUM 90 mg/dL (74-106); MAGNESIUM 1.6 mg/dL (1.8-2.4); PHOSPHOROUS 2.1 mg/dL (2.5-4.9); POTASSIUM SERUM 3.6 mmol/L (3.5-5.1); SODIUM SERUM 135 mmol/L (136-145)
[2019-03-31 07:36] VITALS: BP 92/54
[2019-03-31 07:48] LABS: PLATELET COUNT 88 x10^3mcL (130-400); RED CELL DISTRIBUTION WIDTH 20.1 % (11.5-14.5)
--- NOTE | 2019-03-31 09:00 | NUR ---
FINISHED 50% OF BREAKFAST. DENIES PAIN OR NAUSEA. STATED JUST FEELING SLEEPY FROM AMBIEN GIVEN LAST NIGHT. PLAN OF CARE DISCUSSED. PATIENT VERBALIZED UNDERSTANDING.
--- NOTE | 2019-03-31 12:00 | NUR ---
VANCOMYCIN IVPB INFUSING AT THIS TIME TO LAC IV SITE. AWATING FOR PRBC FROM BLOOD BANK. PATIENT MADE AWARE PLAN OF CARE.
[2019-03-31 13:29] LABS: BAND NEUTROPHIL 0 % (0-10); BASOPHIL 0 % (0-2); MONOCYTE 10 % (0-7); PLATELET MORPHOLOGY LARGE PLATELET SEEN; SEGMENTED NEUTROPHILS 12 % (37-75); rbc morphology (normal/abnorm) ABNORMAL (NORMAL)
--- NOTE | 2019-03-31 15:17 | NUR ---
PRBC STARTED, NO ANY BLOOD ADVERSE REACTION NOTED. IV SITE TO LAC PATENT. WILL CONTINUE TO MONITOR PER BLOOD TRANSFUSION PROTOCAL.
[2019-03-31 16:26] VITALS: BP 110/68
--- NOTE | 2019-03-31 16:37 | NUR ---
PT ENDORSE TO ME BY SANDY MARQUIS. PT RESTING IN BED/ BLOOD TRANSFUSION INFUSING/TOLERATING WELL. CALL LIGHT IN REACH. WILL CONTINUE TO MONITOR.
--- NOTE | 2019-03-31 18:05 | NUR ---
PT C/O OF L EAR PAIN AND HEADACHE, CURRENT TEMP IS 99.2, 20 MIN LEFT FOR BLOOD TRANSFUSION TO FINISH. DR. JEAN MADE AWARE.
[2019-03-31 18:20] VITALS: BP 103/68
--- NOTE | 2019-03-31 18:26 | NUR ---
BLOOD TRANSFUSION COMPLETE/ PT DENIES ANY ADVERSE REACTIONS. VS BP 103/63, HR 100, TEMP 98.9, 02 99 RA. MOTHER AT BEDSIDE. WILL CONTINUE TO MONTIOR.
--- NOTE | 2019-03-31 18:57 | NUR ---
NO ACUTE CHANGES AT THIS TIME. NO ACUTE RESP DISTRESS OR SOB NOTED. DENIES ANY CP OR PRESSURE. STATED ZELAYA IS MUCH BETTER. MOTHER AT BEDSIDE. WILL ENDORSE TO INCOMING RN .
[2019-03-31 19:23] VITALS: BP 100/59
--- NOTE | 2019-03-31 19:31 | NUR ---
RECEIVED PT FROM PREVIOUS SHIFT. PT A/OX4. DENIES PAIN. DENIES SOB ON RA. IV PATENT AND INFUSING NS AT 70ML/HR WITH NO S/S OF INFILTRATION. FAMILY AT BEDSIDE. CALL LIGHT WITHIN REACH, BED IN LOW POSITION. WILL CONTINUE TO MONITOR.
--- NOTE | 2019-04-01 00:10 | NUR ---
PT RESTING IN NO ACUTE DISTRESS. RR EVEN AND UNLABORED. CALL LIGHT WITHIN REACH, BED IN LOW POSITION. WILL CONTINUE TO MONITOR.
[2019-04-01 04:18] VITALS: BP 111/64
[2019-04-01 06:16] LABS: CALCIUM 7.3 mg/dL (8.5-10.1); CARBON DIOXIDE 27.2 mmol/L (21-32); CHLORIDE SERUM 105 mmol/L (98-107); CREATININE SERUM 0.7 mg/dL (0.7-1.3); GFR1 > 60 mL/min; GLUCOSE SERUM 89 mg/dL (74-106); MAGNESIUM 1.8 mg/dL (1.8-2.4); PHOSPHOROUS 2.9 mg/dL (2.5-4.9); POTASSIUM SERUM 3.6 mmol/L (3.5-5.1); SODIUM SERUM 138 mmol/L (136-145)
[2019-04-01 07:51] LABS: PLATELET COUNT 87 x10^3mcL (130-400); RED CELL DISTRIBUTION WIDTH 19.5 % (11.5-14.5)
--- NOTE | 2019-04-01 08:18 | NUR ---
Recieved report from night nurse. SMALL MACHINE BINDERY OPERATOR reports elevated temperature of 100.8. Patient reports feeling normal despite elevated temperature and reports that he has had an elevated temperature all week. Patient agrees to taking an antipyretic.
[2019-04-01 08:35] VITALS: BP 104/58
--- NOTE | 2019-04-01 09:35 | NUR ---
AT 0920 - SEEN BY DR CHUNG AND DR JEAN. DOCTORS SPOKE WITH PATIENT ABOUT LATEST LAB RESULTS AND PLAN OF CARE INCLUDING PLAN TO TRANSFER TO HIGHER LEVEL OF CARE FOR BONE MARROW BIOPSY. PATIENT VERBALIZED AGREEMENT. C/O SORE THROAT. AT 0930 - GIVEN CEPACOL LOZENGE FOR SORE THROAT. ALSO MEDICATED WITH TYLANOL FOR TEMP OF 100.4
[2019-04-01 11:25] LABS: BAND NEUTROPHIL 0 % (0-10); BASOPHIL 0 % (0-2); MONOCYTE 12 % (0-7); SEGMENTED NEUTROPHILS 14 % (37-75); rbc morphology (normal/abnorm) ABNORMAL (NORMAL)
--- NOTE | 2019-04-01 13:40 | NUR ---
Follow-up Nutrition Assessment: 234/B ANN VALERIO FU MR Dx: Pancytopenia PMHx: HIV Labs: (04/01) CA 7.3L, HGB 9.4L, WBC 2.7L, PLT 87L Meds: Ambien, Colace, ferrous sulfate, vancomycin, zofran Diet: Regular (neutropenic precautions) PO Intake: (03/31), lunch, breakfast 100%, (03/30) dinner 60%, lunch 100%, breakfast 90% Weights: (03/27) 50.8 kg, (04/01) 55.8 kg I/Os: (03/31) 3610/1000 (2610) Skin: scattered scabs, ecchymosis Gallito: 21 Edema: none GI: Last BM: 03/30 Note (04/01): Patient was alert and oriented and said that he ate most of his breakfast this morning and he also drink his own Ensure. Patient denies any N/V/D/C at this time. Estimated Nutritional Needs Based on current body weight (50.8 kg) Energy: kcal/day (35-40 kcal/kg for increased factors for HIV) Protein: g/day (1.5-2.0 g/kg for preservation for HIV) Fluid: mL/day (1 mL/kcal) or per MD Nutrition Diagnosis: 1. Underweight related to acute medical condition as evidenced by pt. noted with extensive history of weight loss x 1 year, significant 7.5% loss x 1 month, measured BMI 18.1 kg/m2. 2. Inadequate PO intake related to poor appetite as evidenced by PO intake meeting <75% estimated calorie and protein needs. 3. Increased nutrient needs/ Malnutrition related to acute and chronic medical condition, increased metabolic demands as evidenced by pt. with history of HIV and noted w/ mild indentation of the B/L temporal region and loss of subcutaneous fat/ muscle in B/L brachial regions Intervention: 1. Recommend continuing regular diet with Ensure BID. Discussed recommendations with Dr. Vu Monitor/Evaluate: Goal: Have pt meet at least 75% of estimated needs Monitor: PO intake, Labs, GI function F/U in 7 days as low risk 04/08
--- NOTE | 2019-04-01 13:40 | NUR ---
1. Recommend continuing regular diet with Ensure BID. Discussed recommendations with Dr. Vu
[2019-04-01 17:24] VITALS: BP 110/68
--- NOTE | 2019-04-01 19:01 | NUR ---
[facility] [employer] CALLED AND WANTS A DOCTOR TO DOCTOR REPORT AND HE GIVE THE PHONE NO.[phone] AND GIVE TO .
--- NOTE | 2019-04-01 20:06 | NUR ---
SHIFT ASSESSMENT DONE, PT IN BED AAO X4 VERBAL ON REVERSE ISOL FOR NEUTROPENIA PT STILL C/O SORE THROAT LOZENGES GIVEN PRN, NO COUGHING OR CHEST CONGESTION, LUNGS CTA, IV ACCESS @ LAC PATENT NON INFIL, IVF NS @ 70CC/HR, SCD'S FOR DVT PROPHYLAXIS, NO SKIN BREAKDOWN, SHIFT ASSESSMENT DONE, CALL LIGHT AT REACH ATTENDED NEEDS, FAMILY AT BEDSIDE FOR VISIT, CONT TO MONITOR.
[2019-04-01 21:10] VITALS: BP 113/69
--- NOTE | 2019-04-01 22:33 | NUR ---
DR. SAMANIEGO STATED THAT HE SPOKEN WITH DR. NAOMI AMARO AT [facility]. CALL PLACED TO [phone] [facility] CALL [employer] AND HE STATED THAT THEY ARE STILL WORKING ON IT AND WILL LET US KNOW.
[2019-04-01] MEDS ORDERED: VANCOMYCIN750 MG/250 IV (23:05)
[2019-04-01] MEDS ORDERED: [UNRECOGNIZED DRUG - CODE] SQ (23:08)
[2019-04-01] MEDS ORDERED: MEROPENEM1 GM IV (23:09)
--- NOTE | 2019-04-01 23:18 | NUR ---
TYLENOL 650 MG PO GIVEN FOR TEMP 101.8, COOLING MEASURES PROVIDED, ROOM TEMP ADJUSTED SINCE PT PUT ON HEATER, FLUID INTAKE ENCOURAGED, CONT TO MONITOR.
[2019-04-01 23:46] VITALS: BP 113/69
--- NOTE | 2019-04-02 00:13 | NUR ---
RECHECKED TEMP 98.6, PT FOR POSSIBLE TRANSFER TONIGHT TO [facility] FOR HIGHER LEVEL OF CARE, AWAITING FOR BED AVAILABILITY.
--- NOTE | 2019-04-02 02:05 | NUR ---
RECEIVED A TELEPHONE ORDER FROM DR SEO FOR UA + C&S, BLD CULTURE X2, CXR, ALL ORDERED NOTED AND CARRIED OUT, PT STILL AWAITING FOR BED AVAILABILITY OF [facility].
[2019-04-02 05:05] VITALS: BP 97/57
--- NOTE | 2019-04-02 05:29 | NUR ---
COLLECTED URINE SPEC FOR UA + C&S AND SENT TO LAB.
[2019-04-02 05:52] LABS: microscopic required? NO
--- NOTE | 2019-04-02 06:10 | NUR ---
FOLLOWED UP [facility] FOR BED AVAILABILITY SPOKE TO MR PARKS INTAKE, BED STILL NOT AVAILABLE, WILL ENDORSE FOR FOLLOW UP.
[2019-04-02 06:42] LABS: CALCIUM 7.1 mg/dL (8.5-10.1); CARBON DIOXIDE 28.9 mmol/L (21-32); CHLORIDE SERUM 108 mmol/L (98-107); CREATININE SERUM 0.8 mg/dL (0.7-1.3); GFR1 > 60 mL/min; GLUCOSE SERUM 95 mg/dL (74-106); MAGNESIUM 1.7 mg/dL (1.8-2.4); POTASSIUM SERUM 3.1 mmol/L (3.5-5.1); SODIUM SERUM 140 mmol/L (136-145)
--- NOTE | 2019-04-02 06:52 | NUR ---
RADHA VILLASEÑOR CALLED C/O STEWART ASSIGNED ROOM TELE UNIT 2200 AND RECEIVING MD IS DR ZAPATA, TO CALL REPORT TO TEL NO [phone].
[2019-04-02 07:43] LABS: PLATELET COUNT 91 x10^3mcL (130-400); RED CELL DISTRIBUTION WIDTH 19.9 % (11.5-14.5)
[2019-04-02 08:16] VITALS: BP 97/61
[2019-04-02 08:33] LABS: UA SPECIFIC GRAVITY <=1.005 (1.005-1.035); urine erythrocyte NEGATIVE (NEGATIVE)
--- NOTE | 2019-04-02 08:38 | NUR ---
AT 0710 - RECEIVED PATIENT FROM NIGHT NURSE. SLEEPING. RESPIRATIONS REGULAR.. IV INFUSING NS AT 70 ML/HR. PATIENT IS FOR TRANFER TO [facility]. AT 0730 - PATIENT AWAKE, ALERT AND ORIENTED. AWARE OF PENDING TRANFER. TRANSFER ACKNOWLEDGEMENT FORM SIGNED BY PATIENT. AT 0810 - SCHEDULED MORNING MEDS ADMINISTERED. CALL PLACED FOR DR JEAN TO NOTIFY OF LOW K+ LEVEL OF 3.1 TRANFER PACKET FOR ACCEPTING HOSPITAL PREPARED. PATIENT PROVIDED WITH COPY OF DISCHARGE INSTRUCTIONS. AT 0825 - GIVEN 40 MEQ KCL PO. SEEN BY DR CHUNG AND DR JEAN. IV SALINE LOCKED AND PATIENT PREPARED FOR TRANSFER.
--- NOTE | 2019-04-02 09:21 | NUR ---
AT 0855 - REPORT GIVEN TO SANDY SUERO AT [facility]. TEL: [phone] PATIENT GOING TO ROOM 5323. ADMITTING PHYSICIAN DR ZAPATA. AT 0920 - PATIENT TRANSFERRED TO [facility]IA [facility].
[2019-04-02 09:25] LABS: BAND NEUTROPHIL 0 % (0-10); BASOPHIL 0 % (0-2); MONOCYTE 14 % (0-7); SEGMENTED NEUTROPHILS 17 % (37-75)
[2019-04-02 09:27] LABS: rbc morphology (normal/abnorm) ABNORMAL (NORMAL)
== END 2019-04-02 09:20 | disposition short-term general hospital (02) | DRG 720 ==
LOC: ED 20:14 → MU 22:09
PROVIDERS: Emergency Medicine; Family Medicine; ADMIT Internal Medicine
DX: A41.9 Sepsis, unspecified organism (principal); E43 Unspecified severe protein-calorie malnutrition; D61.818 Other pancytopenia; E83.42 Hypomagnesemia; B37.0 Candidal stomatitis; E83.51 Hypocalcemia; E83.39 Other disorders of phosphorus metabolism; E87.1 Hypo-osmolality and hyponatremia; D64.9 Anemia, unspecified; Z68.20 Body mass index [BMI] 20.0-20.9, adult
CPT/HCPCS: 82962; G0378; J1442; J2185; J3370; J7030; J7040; J7050; P9016; Q0092; Q0163

== ENCOUNTER 2019-04-07 20:41 | Inpatient (IN) | payer MEDICAID ==
[~2019-04-07] VITALS: Ht 167.6 cm; Wt 56.7 kg
--- NOTE | 2019-04-07 19:42 | NUR ---
RECEIVED PT VIA GURNEY FROM [facility], ACCOMPANIED BY 2 AMBULANCE TRANSPORTERS. PT A/A/O X 4, CALM, COOPERATIVE; WEARS GLASSES (W/ PT). AMBULATORY, NO GAIT OR BALANCE IMPAIRMENT NOTED. DENIES CHEST PAIN OR DISCOMFORT AT THIS TIME. SCD BY BEDSIDE. NO ACUTE RESPIRATORY DISTRESS NOTED. PT W/ URGE INCONTINENCE. IV SITE RFA 20G 2-LUMEN, CDI. ORIENTED PT TO ROOM, BED CONTROLS, CALL LIGHT SYSTEM. SIDE RAILS UP X 2, BED IN LOW POSITION. WILL ENDORSE TO SANDY KING.
[~2019-04-07 20:41] MED LIST changes: +BACTRIM DS1 TAB PO; +MEROPENEM1 GM IV; +VANCOMYCIN750 MG/250 IV; +ZITHROMAX500 MG PO; +[UNRECOGNIZED DRUG - CODE] SQ
[2019-04-07 21:02] VITALS: BP 94/58
--- NOTE | 2019-04-07 21:05 | NUR ---
TEMP 101. PATIENT WAS NOT IN SYSTEM. MEDS COULD NOT BE GIVEN. DR SAMANIEGO AWARE. COOLING MEASURES IMPLEMENTED TO BILATERAL AXILLARY AND FORE HEAD. DENIES CHILLS. WILL REASSESS TEMP.
[2019-04-07 21:38] LABS: PLATELET COUNT 91 x10^3mcL (130-400); RED CELL DISTRIBUTION WIDTH 20.1 % (11.5-14.5)
--- NOTE | 2019-04-07 21:46 | NUR ---
CRITICAL HGB 6.9. CALLED TO NOTIFY DR SAMANIEGO. NO NEW ORDERS. WILL WAIT FOR AM LABS.
[2019-04-07 21:48] LABS: CALCIUM 7.2 mg/dL (8.5-10.1); CARBON DIOXIDE 24.8 mmol/L (21-32); CHLORIDE SERUM 101 mmol/L (98-107); GFR1 > 60 mL/min; GLUCOSE SERUM 114 mg/dL (74-106); MAGNESIUM 1.7 mg/dL (1.8-2.4); PHOSPHOROUS 3.1 mg/dL (2.5-4.9); POTASSIUM SERUM 4.3 mmol/L (3.5-5.1); SODIUM SERUM 132 mmol/L (136-145)
[2019-04-07 21:56] LABS: BAND NEUTROPHIL 2 % (0-10); BASOPHIL 0 % (0-2); MONOCYTE 8 % (0-7); SEGMENTED NEUTROPHILS 44 % (37-75); rbc morphology (normal/abnorm) ABNORMAL (NORMAL)
[2019-04-07 21:57] LABS: PLATELET MORPHOLOGY PLATELETS DECREASED
--- NOTE | 2019-04-07 22:00 | NUR ---
PATIENT GIVEN FOOD, DRINKS, AND SNACKS.
--- NOTE | 2019-04-07 22:06 | NUR ---
ADMITTING ORDERS WERE RECEIVED; PT TO BE ON TELEMETRY MONITORING; ON TELE # 11, HR 123, ST, DENIES CHEST PAIN OR DISCOMFORT AT THIS TIME. WILL ENDORSE TO SANDY KING.
--- NOTE | 2019-04-07 22:18 | NUR ---
PRN TORADOL ADMINISTERED FOR TEMP 102.6. PATIENT DID NOT WANT TYLENOL. REPORTS TYLENOL MAKES HIM "REALLY SWEATY". MED EDUCATION GIVEN. NO DISTRESS NOTED. MOTHER AT BEDSIDE. IVF INFUSING WELL. SAFETY MEASURES IN PLACE. WILL CONTINUE TO MONITOR.
--- NOTE | 2019-04-07 22:44 | NUR ---
MG 1.7. PAGE GATED DR SAMANIEGO
--- NOTE | 2019-04-07 23:18 | NUR ---
TEMP NOW 97.6 AFTER PRN TORADOL. PATIENT REPORTS TORADOL GIVES HIM NIGHTS SWEATS WELL LIKE TYLENOL. SITTING ON SIDE OF BED IN FRONT OF AC. NO DISTRESS NOTED. BREATHING EVEN. WILL CONTINUE TO MONITOR.
--- NOTE | 2019-04-08 01:10 | NUR ---
PATIENT IS RESTING IN BED WITH EYES CLOSED. MOTHER AT BEDSIDE ON RECLINER. NO DISTRESS NOTED. BREATHING EVEN AND UNLABORED ON ROOM AIR. NO SOB NOTED. EVEN CHEST RISE AND FALL. NO S/S OF PAIN NOTED. IVF INFUSING WELL. SAFETY MEASURES IN PLACE. CALL LIGHT IS WITHIN REACH. WILL CONTINUE TO MONITOR.
--- NOTE | 2019-04-08 03:10 | NUR ---
PATIENT IS RESTING WITH EYES CLOSED. MOTHER AT BEDSIDE. NO S/S OF DISTRESS OR PAIN NOTED. BREATHING EVEN AND UNLABORED ON ROOM AIR. EVEN CHEST RISE AND FALL. NO SOB NOTED. IVF INFUSING WELL. SAFETY MEASURES IN PLACE. CALL LIGHT IS WITHIN REACH. WILL CONTINUE TO MONITOR.
[2019-04-08 05:09] VITALS: BP 90/50
--- NOTE | 2019-04-08 05:30 | NUR ---
PAGE GATED DR SAMANIEGO ABOUT BP 90/50 (03)
--- NOTE | 2019-04-08 05:57 | NUR ---
RESTED IN LONG INTERVALS THROUGHOUT THE NIGHT. NO ACUTE CHANGES NOTED. BREATHING EVEN AND UNLABORED ON ROOM AIR. NO SOB NOTED. NO S/S OF DISTRESS NOTED. IVF INFUSING WELL. PATENT AND INTACT. NO REDNESS OR SWELLING NOTED. INCONTINENT OF URINE THROUGHOUT THE NIGHT. NO C/O PAIN THROUGHOUT THE NIGHT. SAFETY MEASURES IN PLACE. CALL LIGHT IS WITHIN REACH. ALL NEEDS AND CONCERNS ADDRESSED. WILL ENDORSE CARE TO DAY SHIFT RN.
--- NOTE | 2019-04-08 06:41 | NUR ---
PATIENT IS SHIVERING AND STATES HE HIS VERY COLD. ANOTHER BLANKET PROVIDED. PATIENT REPORTS THIS IS "NIGHT SWEATS" FROM THE TORADOL GIVEN EARLIER. TEMP ASSESSED. TEMP 99.5. WILL ENDORSE TO DAY SHIFT RN.
--- NOTE | 2019-04-08 07:51 | NUR ---
RECEIVED PATIENT FROM SANDY RICE. PATIENT IN BED SLEEPING AT THIS TIME, WAS NOTIFIED BY LISA WILD THAT PATIENT HAS MILD FEVER. COOLING INITIATED, A/C TURNED ON, ICE PACKS TO FOREHEAD AND CORE. WILL CONTINUE TO MONITOR FOR TEMPERATURE AND WILL AWAIT FOR CARE TEAM TO SPEAK W PATIENT ABOUT PLAN TODAY. CALL LIGHT IN REACH AT THIS TIME.
[2019-04-08 08:43] VITALS: BP 130/63
--- NOTE | 2019-04-08 09:19 | NUR ---
DR GUILLAUME AND DR ELLIOTT IN TO SPEAK WITH PATIENT. STATES ONCE BLOOD TRANSFUSION IS COMPLETE AND HGB WNL, PATIENT SHOULD BE ABLE TO BE DISCHARGED TODAY. INFORMED PATIENT THAT HE NEEDS TO FOLLOW UP WITH RESIDENT CLINIC, PATIENT VERBALIZES UNDERSTANDING AND AGREES. TEMP REMAINS ELEVATED AT 10.4, PO TYLENOL ADMINISTERED. CALL LIGHT IN REACH AT THIS TIME.
[2019-04-08 10:07] LABS: BASOPHIL % 0 % (0-2); PLATELET COUNT 82 x10^3mcL (130-400); RED CELL DISTRIBUTION WIDTH 20.9 % (11.5-14.5)
[2019-04-08 10:08] LABS: rbc morphology (normal/abnorm) ABNORMAL (NORMAL)
--- NOTE | 2019-04-08 10:31 | NUR ---
SPOKE W DR GUILLAUME AND DR ELLIOTT THAT PATIENT MOST RECENT CBC TODAY AT 0905 RESULTED IN HGB 7.3, HCT 22. DOCTORS MADE AWARE, DR GUILLAUME STATES TO HOLD 1 PRBCs AT THIS TIME. STATES THEY WILL LIKELY CONSULT DR SEO FOR CONTINUED FEVER. WILL AWAIT FURTHER ORDERS AT THIS TIME. PATIENT IN BED, NO COMPLAINTS AT THIS TIME, MOST RECENT ORAL TEMP WAS 99.0. CALL LIGHT IN REACH.
[2019-04-08 11:46] LABS: CALCIUM 7.6 mg/dL (8.5-10.1); CARBON DIOXIDE 19.9 mmol/L (21-32); CHLORIDE SERUM 102 mmol/L (98-107); CREATININE SERUM 0.8 mg/dL (0.7-1.3); GFR1 > 60 mL/min; GLUCOSE SERUM 133 mg/dL (74-106); MAGNESIUM 2.1 mg/dL (1.8-2.4); PHOSPHOROUS 3.3 mg/dL (2.5-4.9); POTASSIUM SERUM 4.4 mmol/L (3.5-5.1); SODIUM SERUM 132 mmol/L (136-145)
[2019-04-08 11:55] VITALS: BP 98/58
[2019-04-08] MEDS ORDERED: FERROUS SULFAT325 M2 PO (13:42)
[2019-04-08] MEDS ORDERED: GOOD SENSE PAI650 MG PO (13:54)
[2019-04-08 13:56] VITALS: BP 98/58
--- NOTE | 2019-04-08 15:04 | NUR ---
DR JEAN IN TO SPEAK W PATIENT. DR JEAN EXPLAINED TO PATIENT HE IS CLEARED TO GO ONCE CLEARED BY DR SEO. ONCE CLEARED, DR JEAN STATES HE CAN BE DISCHARGED BUT PATIENT NEEDS TO FOLLOW UP WITH [employer] CONDITIONING MECHANIC AND OUTPATIENT CLINIC. PATIENT AGREES AND VERBALIZES UNDERSTANDING. NO COMPLAINTS AT THIS TIME, CALL LIGHT IN REACH.
--- NOTE | 2019-04-08 15:41 | NUR ---
Discount pharmacy card and list to low cost medical clinics given to patient by Juliano.
[2019-04-08 16:48] VITALS: BP 97/50
--- NOTE | 2019-04-08 17:19 | NUR ---
PATIENT MOTHER AT BEDSIDE. MOTHER IS UPSET, STATES THAT PATIENT WAS NOT GIVEN LUNCH TRAY. WAS NOT MADE AWARE BY PATIENT THAT HE DID NOT HAVE LUNCH TRAY. APOLOGIZED TO PATIENT MOTHER, HOWEVER SHE STATES "THAT IS NOT GOOD ENOUGH, YOU SHOULD BE RESPONSIBLE FOR ALL YOUR PATIENTS". PATIENT STATES THAT HE WAS NOT BOTHERED BY NOT HAVING LUNCH. PATIENT MOTHER STATES SHE WOULD LIKE TO SPEAK WITH THE DOCTOR AND UPDATED TO PLAN OF CARE FOR REST OF THE DAY. DR JEAN NOTIFIED AND MADE AWARE, WILL AWAIT FOR DR JEAN TO SPEAK WITH THEM. DISCHARGE ORDERS HAVE BEEN PLACED. CALL LIGHT IN REACH AT THIS TIME.
--- NOTE | 2019-04-08 17:44 | NUR ---
SPOKE WITH DR JEAN ABOUT PATIENT PLAN, STATES DR SEO IS NOT SENDING PATIENT HOME WITH ANY HOME ANTIBIOTICS. ALREADY SPOKE WITH PATIENT AND MOTHER IN ROOM, EMPHASIZED FOLLOW UP APPOINTMENTS WITH RESIDENT CLINIC WELL FU W PCP. DISCHARGE PACKET PRINTED AND WILL DISCHARGE PATIENT TODAY.
--- NOTE | 2019-04-08 19:00 | NUR ---
DISCHARGE PACKET AND INSTRUCTIONS GIVEN TO PATIENT. PRESCRIPTIONS ELECTRONICALLY SENT. ALL QUESTIONS ANSWERED AND ADDRESSED. IV CATHETER REMOVED AND INTACT. STEAM SETTER RETURNED TO [facility]. SIGNATURES OBTAINED. PATIENT AND MOTHER AWARE TO FOLLOW UP WITH RESIDENT CLINIC AND TO FOLLOW UP W SUPERVISOR MACHINE WORKERS FOR BONE MARROW BIOPSY RESULTS. PACKET GIVEN TO PATIENT, PATIENT W BELONGINGS ESCORTED VIA WHEELCHAIR TO FRONT LOBBY W THIS NURSE.
== END 2019-04-08 18:50 | disposition home or self-care (01) | DRG 809 ==
LOC: DU 20:41
PROVIDERS: ADMIT Internal Medicine
DX: D61.818 Other pancytopenia (principal); E87.1 Hypo-osmolality and hyponatremia; F17.210 Nicotine dependence, cigarettes, uncomplicated; E83.42 Hypomagnesemia; E83.51 Hypocalcemia; Z83.3 Family history of diabetes mellitus; Z80.6 Family history of leukemia
CPT/HCPCS: G0378; J1885; J7030; J7050; Q0163

== ENCOUNTER 2019-04-20 22:35 | Inpatient (IN) | payer MEDICAID ==
[~2019-04-20] VITALS: Ht 167.6 cm; Wt 60.3 kg
[~2019-04-20 22:35] MED LIST changes: +FERROUS SULFAT325 M2 PO; +GOOD SENSE PAI650 MG PO
[2019-04-20 23:56] LABS: BASOPHIL % 0.2 % (0-2)
[2019-04-20 23:58] LABS: microscopic required? YES; urine erythrocyte TRACE (NEGATIVE)
[2019-04-20 23:59] LABS: ALKALINE PHOSPHATASE 665 U/L (46-116); ALT/SGPT 26 U/L (16-63); AST/SGOT 58 U/L (15-37); BILIRUBIN TOTAL 1.9 mg/dL (0.20-1.00); CARBON DIOXIDE 22.2 mmol/L (21-32); CHLORIDE SERUM 102 mmol/L (98-107); CREATININE SERUM 1.2 mg/dL (0.7-1.3); GFR1 > 60 mL/min; GLUCOSE SERUM 104 mg/dL (74-106); POTASSIUM SERUM 4.1 mmol/L (3.5-5.1); SODIUM SERUM 133 mmol/L (136-145); TOTAL PROTEIN, SERUM 8.1 g/dL (6.4-8.2)
[2019-04-21] VITALS (8 sets, daily range): BP systolic 85–125; BP diastolic 53–77; Ht 167.6 cm; Wt 60.3 kg
[2019-04-21] LABS: ALBUMIN 1.6 g/dL (3.4-5.0)
[2019-04-21 00:01] LABS: PLATELET COUNT 79 x10^3mcL (130-400)
[2019-04-21 00:03] LABS: rbc morphology (normal/abnorm) ABNORMAL (NORMAL)
[2019-04-21 01:28] LABS: AMPHETAMINE QUAL UR NONE DETECTED (See below)
[2019-04-21 06:20] LABS: CARBON DIOXIDE 22.3 mmol/L (21-32); CHLORIDE SERUM 105 mmol/L (98-107); GFR1 > 60 mL/min; GLUCOSE SERUM 110 mg/dL (74-106); MAGNESIUM 2.2 mg/dL (1.8-2.4); PHOSPHOROUS 3.5 mg/dL (2.5-4.9); POTASSIUM SERUM 3.6 mmol/L (3.5-5.1); SODIUM SERUM 135 mmol/L (136-145)
[2019-04-21 07:00] LABS: PLATELET COUNT 59 x10^3mcL (130-400)
[2019-04-21 07:26] LABS: MONOCYTE 7 % (0-7); SEGMENTED NEUTROPHILS 84 % (37-75)
[2019-04-21 07:37] LABS: rbc morphology (normal/abnorm) ABNORMAL (NORMAL)
[2019-04-21 13:32] LABS: RED CELL DISTRIBUTION WIDTH 19.8 % (11.5-14.5)
[2019-04-21 13:43] LABS: MONOCYTE 11 % (0-7); SEGMENTED NEUTROPHILS 80 % (37-75)
[2019-04-21 13:46] LABS: rbc morphology (normal/abnorm) NORMAL (NORMAL)
[2019-04-21 13:49] LABS: PLATELET MORPHOLOGY NORMAL
[2019-04-21 13:53] LABS: PLATELET COUNT 58 x10^3mcL (130-400)
[2019-04-22 04:21] VITALS: BP 89/56
[2019-04-22 06:35] LABS: CALCIUM 6.7 mg/dL (8.5-10.1); CHLORIDE SERUM 108 mmol/L (98-107); CREATININE SERUM 1.1 mg/dL (0.7-1.3); GFR1 > 60 mL/min; GLUCOSE SERUM 118 mg/dL (74-106); MAGNESIUM 1.8 mg/dL (1.8-2.4); PHOSPHOROUS 3.8 mg/dL (2.5-4.9); POTASSIUM SERUM 3.5 mmol/L (3.5-5.1); SODIUM SERUM 137 mmol/L (136-145)
[2019-04-22 08:58] VITALS: BP 90/55
[2019-04-22 09:39] VITALS: BP 89/58
[2019-04-22 13:37] LABS: PLATELET COUNT 34 x10^3mcL (130-400); RED CELL DISTRIBUTION WIDTH 19.9 % (11.5-14.5)
[2019-04-22 14:40] LABS: MONOCYTE 3 % (0-7); PLATELET MORPHOLOGY PLATELETS DECREASED; SEGMENTED NEUTROPHILS 95 % (37-75); rbc morphology (normal/abnorm) ABNORMAL (NORMAL)
[2019-04-22 16:17] VITALS: BP 114/98
[2019-04-22 18:18] VITALS: BP 111/65
[2019-04-22 20:03] VITALS: BP 107/68
[2019-04-22 21:29] LABS: rbc morphology (normal/abnorm) ABNORMAL (NORMAL)
[2019-04-23] VITALS (10 sets, daily range): BP systolic 79–123; BP diastolic 46–80
[2019-04-23 08:10] LABS: CALCIUM 7.4 mg/dL (8.5-10.1); CARBON DIOXIDE 19.2 mmol/L (21-32); CHLORIDE SERUM 109 mmol/L (98-107); CREATININE SERUM 1.3 mg/dL (0.7-1.3); GFR1 > 60 mL/min; GLUCOSE SERUM 95 mg/dL (74-106); POTASSIUM SERUM 3.7 mmol/L (3.5-5.1)
[2019-04-23 08:14] LABS: SODIUM SERUM 137 mmol/L (136-145)
[2019-04-23 08:33] LABS: RED CELL DISTRIBUTION WIDTH 16.7 % (11.5-14.5)
[2019-04-23 11:08] LABS: IRON 68 ug/dL (65-170)
[2019-04-23 11:17] LABS: TOTAL IRON BINDING CAPACITY 148 ug/dL (250-450)
[2019-04-23 13:42] LABS: BAND NEUTROPHIL 7 % (0-10); MONOCYTE 8 % (0-7); SEGMENTED NEUTROPHILS 71 % (37-75)
[2019-04-23 13:43] LABS: rbc morphology (normal/abnorm) ABNORMAL (NORMAL)
[2019-04-23 13:44] LABS: PLATELET MORPHOLOGY LARGE PLATELET SEEN
[2019-04-23 13:45] LABS: PLATELET COUNT 31 x10^3mcL (130-400)
[2019-04-23 13:47] LABS: MYELOCYTE 1 % (0-2)
[2019-04-24 05:24] VITALS: BP 104/55
[2019-04-24 06:16] LABS: CALCIUM 6.9 mg/dL (8.5-10.1); CARBON DIOXIDE 18.8 mmol/L (21-32); CREATININE SERUM 1.5 mg/dL (0.7-1.3); POTASSIUM SERUM 3.9 mmol/L (3.5-5.1)
[2019-04-24 06:50] LABS: RED CELL DISTRIBUTION WIDTH 17.2 % (11.5-14.5)
[2019-04-24 06:53] LABS: PLATELET COUNT 25 x10^3mcL (130-400)
[2019-04-24 07:45] VITALS: BP 106/65
[2019-04-24 11:40] VITALS: BP 96/61
[2019-04-24 13:23] LABS: ATYPICAL LYMPH 2 %; BAND NEUTROPHIL 6 % (0-10); MONOCYTE 5 % (0-7); SEGMENTED NEUTROPHILS 72 % (37-75)
[2019-04-24 13:24] LABS: PLATELET MORPHOLOGY LARGE PLATELET SEEN; rbc morphology (normal/abnorm) ABNORMAL (NORMAL)
[2019-04-24 17:03] VITALS: BP 102/63
[2019-04-24 20:23] VITALS: BP 104/56
[2019-04-25 05:32] VITALS: BP 106/66
[2019-04-25 06:41] LABS: CALCIUM 7.1 mg/dL (8.5-10.1); CARBON DIOXIDE 18.3 mmol/L (21-32); CREATININE SERUM 1.6 mg/dL (0.7-1.3); POTASSIUM SERUM 4.1 mmol/L (3.5-5.1)
[2019-04-25 09:22] VITALS: BP 93/62
[2019-04-25 10:55] LABS: RED CELL DISTRIBUTION WIDTH 18.4 % (11.5-14.5)
[2019-04-25 10:57] LABS: PLATELET COUNT 19 x10^3mcL (130-400)
[2019-04-25 11:13] LABS: BAND NEUTROPHIL 0 % (0-10); BASOPHIL 0 % (0-2); MONOCYTE 17 % (0-7); SEGMENTED NEUTROPHILS 81 % (37-75)
[2019-04-25 11:14] LABS: PLATELET MORPHOLOGY PLATELETS DECREASED
[2019-04-25 11:16] LABS: rbc morphology (normal/abnorm) ABNORMAL (NORMAL)
[2019-04-25 12:01] VITALS: BP 107/75
[2019-04-25 12:22] LABS: RED BLOOD CELLS 2.49 M/mm3 (4.52-5.90)
[2019-04-25 17:39] VITALS: BP 96/63
[2019-04-25 20:55] VITALS: BP 135/60
[2019-04-26 06:43] VITALS: BP 94/62
[2019-04-26 06:53] LABS: BASOPHIL % 0.9 % (0-2)
[2019-04-26 06:59] LABS: RED CELL DISTRIBUTION WIDTH 20.6 % (11.5-14.5)
[2019-04-26 07:02] LABS: PLATELET COUNT 12 x10^3mcL (130-400)
[2019-04-26 07:11] LABS: CALCIUM 7.2 mg/dL (8.5-10.1); CARBON DIOXIDE 17.5 mmol/L (21-32); CREATININE SERUM 1.5 mg/dL (0.7-1.3); POTASSIUM SERUM 3.8 mmol/L (3.5-5.1)
[2019-04-26 07:30] VITALS: BP 92/63
[2019-04-26 07:30] LABS: rbc morphology (normal/abnorm) ABNORMAL (NORMAL)
== END 2019-04-26 10:34 | disposition left against medical advice (07) | DRG 720 ==
LOC: ED 22:35 → DU 04-21 00:20
PROVIDERS: Emergency Medicine; ADMIT Internal Medicine
DX: A41.9 Sepsis, unspecified organism (principal); E43 Unspecified severe protein-calorie malnutrition; D61.818 Other pancytopenia; A04.72 Enterocolitis due to Clostridium difficile, not specified as recurrent; J18.9 Pneumonia, unspecified organism; R74.0 Nonspecific elevation of levels of transaminase and lactic acid dehydrogenase [LDH]; E87.1 Hypo-osmolality and hyponatremia; E83.51 Hypocalcemia; Z68.21 Body mass index [BMI] 21.0-21.9, adult; Z87.891 Personal history of nicotine dependence; Z53.29 Procedure and treatment not carried out because of patient's decision for other reasons
CPT/HCPCS: 31720; 82308; 86480; 87046; 87046-59; G0378; J0696; J1885; J1956; J2354; J2405; J2543; J7030; J7040; J7050; P9016; Q0092; Q0163